=== PATIENT | male | born 2000 | race Caucasian/White ===

== ENCOUNTER 2020-11-05 17:59 | Emergency (ER) | payer OTHER ==
[~2020-11-05] VITALS: Ht 188 cm; Wt 81.6 kg
[2020-11-05] MEDS ORDERED: ULTRAM50 MG PO (22:07)
[2020-11-06 00:27] VITALS: BP 122/64
== END 2020-11-05 23:15 | disposition home or self-care (01) ==
LOC: ER 18:26
DX: S62.325A Displaced fracture of shaft of fourth metacarpal bone, left hand, initial encounter for closed fracture (principal); V00.131A Fall from skateboard, initial encounter; Y93.51 Activity, roller skating (inline) and skateboarding; Y92.488 Other paved roadways as the place of occurrence of the external cause

== ENCOUNTER 2021-02-27 09:22 | Emergency (ER) | payer OTHER ==
[~2021-02-27] VITALS: Ht 188 cm; Wt 81.6 kg
[~2021-02-27 09:22] MED LIST: ULTRAM50 MG PO
[2021-02-27] MEDS ORDERED: TETANUS/DIPHTHERIA TOX ADULT 0.5 ML SYR IM ONE (09:45)
[2021-02-27] MEDS ORDERED: TETANUS/DIPHTHERIA TOX ADULT 0.5 ML SYR ONE (09:47)
== END 2021-02-27 09:55 | disposition home or self-care (01) ==
LOC: ER 09:26
DX: S01.312A Laceration without foreign body of left ear, initial encounter (principal); Y04.0XXA Assault by unarmed brawl or fight, initial encounter; Y92.29 Other specified public building as the place of occurrence of the external cause
CPT/HCPCS: 90471; 90714; 99283

== ENCOUNTER 2021-02-28 11:34 | Emergency (ER) | payer SELFPAY ==
[~2021-02-28] VITALS: Ht 188 cm; Wt 81.6 kg
== END 2021-02-28 12:57 | disposition home or self-care (01) ==
LOC: ER 11:38
DX: R07.89 Other chest pain (principal); R06.02 Shortness of breath; R42 Dizziness and giddiness; F17.210 Nicotine dependence, cigarettes, uncomplicated
CPT/HCPCS: 93005; 99283